=== PATIENT | female | born 1985 | race Caucasian/White ===

== ENCOUNTER 2025-05-05 12:26 | Emergency (ER) | payer OTHER, SELFPAY ==
[2025-05-05 12:32] VITALS: BP 136/58; BMI 36.8
[2025-05-05 12:53] LABS: % Basophils 0.3 % (0-2); % Eosinophils 0.9 % (0-6); % Immature Granulocytes 0.2 % (0-0.5); % Lymphocytes 18.9 % (20.5-51.1); % Monocytes 6.6 % (1.7-9.3); % Neutrophils 73.1 % (42.2-75.2); Absolute Eosinophils 0.1 10^3/uL (0-0.7); Absolute Lymphocytes 1.8 10^3/uL (1.2-3.4); Absolute Monocytes 0.6 10^3/uL (0.1-0.6); Absolute Neutrophils 7.1 10^3/uL (1.4-6.5); Hematocrit 32.1 % (37.0-47.0); Hemoglobin 10.8 g/dL (12.0-16.0); Mean Corp Hgb Conc. 33.6 g/dL (33.0-37.0); Mean Corpuscular Hgb 23.9 pg (27.0-31.0); Mean Platelet Volume 10.1 fL (7.4-10.4); Nucleated Red Blood Cells % 0 %; Platelet Count 265 10^3/uL (130-400); Red Blood Cell Count 4.52 10^6/uL (4.20-5.40); Red Cell Dist. Width 21.2 % (11.5-14.5); White Blood Cell Count 9.7 10^3/uL (4.8-10.8)
[2025-05-05 13:18] LABS: Urine Albumin Negative (Neg - Trace); Urine Bilirubin Negative (Negative); Urine Character Clear (Clear); Urine Color Yellow; Urine Glucose Negative (Negative); Urine Ketone Negative (Negative); Urine Leukocyte Negative (Negative); Urine Nitrite Negative (Negative); Urine Occult Blood Negative (Negative); Urine Urobilinogen Negative (Neg - 1+)
[2025-05-05 13:19] LABS: HCG, Serum Qualitative Screen Negative
[2025-05-05 13:22] LABS: ALT (SGPT) 19 U/L (0-35); AST (SGOT) 22 U/L (14-36); Albumin 4.1 g/dl (3.5-5.0); Alkaline Phosphatase 69 U/L (38-126); Blood Urea Nitrogen 6 mg/dl (7-17); Calcium 9.2 mg/dl (8.4-10.2); Carbon Dioxide 25 mmol/L (22-30); Chloride 107 mmol/L (98-107); Estimated Creatinine Clearance > 125 ml/min; Glucose 97 mg/dl (70-99); Potassium 4.3 mmol/L (3.5-5.1); Sodium 139 mmol/L (135-145); Total Bilirubin 0.5 mg/dl (0.2-1.3); Total Protein 7.1 g/dl (6.3-8.2); eGFR > 60.00
[2025-05-05 13:32] LABS: Amphetamines Negative (Negative); Barbiturates Negative (Negative); Benzodiazepines Negative (Negative); Buprenorphine Negative (Negative); Cocaine Negative (Negative); Marijuana Negative (Negative); Methadone Negative (Negative); Methamphetamines Negative (Negative); Opiates Negative (Negative); Phencyclidine Negative (Negative); Tricyclic Antidepressants Negative (Negative)
[2025-05-05] MEDS: COGENTIN 1 MG IV ×2 (13:58→14:50)
--- NOTE | 2025-05-05 14:29 | ED.GENMED ---
History of Present Illness
General
Chief Complaint: Dizziness
Time Seen by Provider: 05/05/25 13:04
History of Present Illness
History of Present Illness:
Note:
CHIEF COMPLAINT(S)
Restlessness and difficulty sitting or sleeping.
HISTORY OF PRESENT ILLNESS
The patient is a 39-year-old individual, presenting with restlessness, difficulty sitting, and difficulty sleeping. These symptoms have been ongoing since receiving a long-acting injection of aripiprazole (Abilify) approximately one week ago. The
patient reports 'severe side effects' associated with 'increased adrenaline.' The patient also mentions being homeless but has potential temporary housing with a partner. Intravenous fluids were administered by EMS prior to presentation.
ADDITIONAL HISTORY OBTAINED FROM SOURCES OTHER THAN THE PATIENT
Per EMS, the patient received 500 milliliters of intravenous fluid prior to hospital arrival.
SOCIAL DETERMINANTS AFFECTING HEALTH
The patient is currently experiencing homelessness and lives intermittently in a car with their partner. The patient is attempting to reunite with a partner and social support services.
MEDICATIONS
Recently received a two-month long-acting injection of aripiprazole (Abilify).
REVIEW OF SYSTEMS
- General: Unable to sit or sleep comfortably.
- Neurological: Reports restlessness and heightened adrenaline sensation.
PHYSICAL EXAM
- General: Alert and oriented.
- Neurological: No focal motor deficits observed. Normal gait.
- Respiratory: No distress observed.
- Abdomen: Non-distended.
- Extremities: No edema. Warm and well-perfused.
- Nursing notes reviewed and vital signs reviewed.
PLAN
Consider administering benztropine (Cogentin) to alleviate the side effects of aripiprazole. Review patients records to evaluate additional treatment options to manage symptoms effectively.
DIFFERENTIAL DIAGNOSIS
The Differential Diagnosis includes, in no particular order and is not limited to:
1. Akathisia secondary to aripiprazole
2. Anxiety disorder
3. Hyperthyroidism
4. Substance withdrawal
5. Restless leg syndrome
6. Electrolyte imbalance
7. Psychomotor agitation
8. Sleep disorder
9. Schizophrenia-related psychosis
10. Candy
CARE-UPDATE
05/05/25 - 14:30
The patients condition remains stable, and there is no need for immediate changes to the current management plan.
Disposition:
SUMMARY OF ENCOUNTER
The patient, a 39-year-old individual, presented with restlessness and difficulty sitting or sleeping, which have been ongoing since a recent long-acting injection of aripiprazole. These symptoms led to the emergency department visit where
benztropine (Cogentin) was administered, providing symptomatic relief. The patient was also reportedly affected by being in the heat while searching for their partner.
DISPOSITION
The patient is advised to follow up with their psychiatrist for ongoing management of aripiprazole side effects and possible incorporation of benztropine as a regular treatment option.
MEDICATION RECONCILIATION
Benztropine was administered in the emergency department to alleviate the side effects of the aripiprazole injection.
MEDICAL DECISION MAKING
1. Number & Complexity of Problems: Chronic conditions affecting care include homelessness and possible schizophrenia-related psychosis. Differential diagnoses considered were akathisia secondary to aripiprazole and anxiety disorder.
2. Data Reviewed:
- Category 1: Labs reviewed, with hemoglobin mildly anemic at 10.8 g/dL, white cell count normal at 9.7 x 10^9/L, and normal chemistry.
3. Risk: Consideration of inpatient care was made due to symptom complexity and social determinants; however, outpatient management was deemed appropriate, given improvement with benztropine and discharge plans to follow up with psychiatric care.
DIAGNOSIS
Akathisia secondary to aripiprazole administration was determined as a probable cause for patients symptoms.
PATHOLOGIES TO CONSIDER
The potential complications of unmanaged akathisia and psychomotor agitation due to antipsychotic medication were considered, necessitating follow-up to prevent escalation into more severe psychiatric or physiological disorders.
Past History
Past History
ED Past Medical History: None
ED Past Surgical History: None
Social History
Tobacco: Smoker
Alcohol: Occasional
Personal: Single
Phy Exam
Physical Exam
Physical Exam:
.
Course
Orders/Labs/Results
Orders:
Orders
05/05/25 12:43
Complete Blood Count/With Diff Urgent
Comprehensive Metabolic Panel Urgent
HCG, Serum Qualitative Screen Urgent
Comment: ADD
05/05/25 12:45
Add On- LAB Urgent
Tests Added?: hcg qualitative
05/05/25 12:54
Case Management Consult ONCE
Case Management Consult: Discharge Planning
05/05/25 13:05
Urinalysis Reflex To Culture Urgent
Date Specimen was Collected: 05/05/25
Time Specimen was Collected: 12:53
05/05/25 13:06
Urine Drug Abuse Screen Urgent
Date Specimen was Collected: 05/05/25
Time Specimen was Collected: 12:53
05/05/25 13:55
Benztropine Mesylate [Cogentin] 1 mg IV NOW STA
Abnormal Lab Results
05/05/25
12:43
Hgb 10.8 L g/dL
(12.0-16.0)
Hct 32.1 L %
(37.0-47.0)
MCV 71.0 L fL
(81.0-99.0)
MCH 23.9 L pg
(27.0-31.0)
RDW 21.2 H %
(11.5-14.5)
Absolute Neuts (auto) 7.1 H 10^3/uL
(1.4-6.5)
Lymphocytes % 18.9 L %
(20.5-51.1)
BUN 6 L mg/dl
(7-17)
Creatinine 0.5 L mg/dL
(0.6-1.0)
05/05/25 12:43
05/05/25 12:43
Vital Signs
Initial and Last Documented VS:
Initial Vital Signs
Temp Pulse Resp BP Pulse Ox
98.3 F 80 15 136/58 100
05/05/25 12:32 05/05/25 12:32 05/05/25 12:32 05/05/25 12:32 05/05/25 12:32
Last Documented Vital Signs
Temp Pulse Resp BP Pulse Ox
98.3 F 80 15 136/58 100
05/05/25 12:32 05/05/25 12:32 05/05/25 12:32 05/05/25 12:32 05/05/25 12:32
*Pulse Oximetry
SaO2: 100
Oxygen Mode of Delivery: Room air
Patient hypoxic: no
*Critical Care Note
Total Time (30-74mins, 75-104mins- exclusive of procedures): Not Applicable
ED Attending Note
-
Portions of this chart may have been created with voice recognition software.� Occasional wrong word or��sound alike� substitutions may have occurred due to the inherent limitations of voice recognition software.
Discharge Plan
Departure
Patient Disposition: Home (Routine Discharge)
Date of Disposition: 05/05/25
Time of Disposition: 14:32
Patient with high blood pressure during this ER visit?: No
Discharge Problem:
Akathisia, Homelessness
Prescriptions:
No Action
ibuprofen 600 MG tablet
600 mg PO NOW Qty: 0 0RF
Activity Restrictions/Additional Instructions:
Akathisia
Please see your psychiatrist in the next 3 to 5 days for follow-up and reevaluation to consider additional medications if any of your symptoms return. Return immediately for worsening symptoms or any other concerns.
Interventions
Interventions:
*Risk Screen - Suicide Last Done: 05/05/25 12:39
*General Assessment Last Done: 05/05/25 12:39
*Neglect/Abuse Screening Last Done: 05/05/25 12:39
*ED- Fall Risk Assessment Last Done: 05/05/25 12:39
*ED COVID-19 Vaccine History Last Done: 05/05/25 12:39
ED- Neurological Assessment Last Done: 05/05/25 12:48
ED- Cardiac Assessment Last Done: 05/05/25 12:48
Discharge Date and Time
Print Language: DANISH
--- NOTE | 2025-05-05 15:10 | CM ---
Received CM consult, met with pt at bedside in ED.
Per pt she was in [place] 'looking for her partner', states they got 39 days ago. Pt states she was staying with friends in [facility] but is not welcome to stay there any longer.
She was able to take to train to [place], conductor let her ride for free, was going to look for her partner at the library but became dizzy.
States she is homeless, does not have any money, but has a friend in [place] she can stay with, [address] [place] [address].
Friend does not drive and she does not have anyone else to call to pick her up.
[facility] arranged.
== END 2025-05-05 15:29 | disposition home or self-care (01) ==
LOC: EMR 12:26
PROVIDERS: EMERGENCY PHYSICIAN Emergency Medicine; FAMILY PHYSICIAN Family Medicine
DX: G25.71 Drug induced akathisia (principal); Z59.00 Homelessness unspecified; F17.200 Nicotine dependence, unspecified, uncomplicated
CPT/HCPCS: 99283; 96374; 96376; 80053; 80306; 81003; 84703; 85025; J0515